=== PATIENT | female | born 1965 | race Caucasian/White ===

== ENCOUNTER → 2017-11-05 | Outpatient (CLI) | payer BC | LOC: MAMMO 12:45 → RAD 13:45 | DX: Z12.31 Encounter for screening mammogram for malignant neoplasm of breast (principal) ==

== ENCOUNTER 2021-07-19 11:00 | Outpatient (RCR) | payer BC | END 2021-08-08 17:00 | disposition home or self-care (01) | LOC: OT 11:00 | DX: G56.32 Lesion of radial nerve, left upper limb (principal) ==

== ENCOUNTER 2022-12-17 12:59 | Outpatient (RCR) | payer BC | END 2022-12-27 | disposition home or self-care (01) | LOC: PT | DX: M54.12 Radiculopathy, cervical region (principal) ==